=== PATIENT | male | born 1980 | race Caucasian/White ===

== ENCOUNTER 2020-02-11 19:11 | Emergency (ER) | payer BC ==
--- NOTE | 2020-02-11 19:26 | EDM.PDOC ---
ED HPI GENERAL MEDICAL PROBLEM - General Chief Complaint: General Stated Complaint: POSSIBLE COVID EXPOSURE Time Seen by Provider: 02/11/20 19:47 - History of Present Illness INITIAL COMMENTS - FREE TEXT/NARRATIVE: The patient decided to leave without being seen prior to my evaluation. Past Medical History - Past Health History Medical/Surgical History: Denies Medical/Surgical History Social & Family History - Tobacco Use Smoking Status *Q: Never Smoker Second Hand Smoke Exposure: No - Recreational Drug Use Recreational Drug Use: No ED ROS GENERAL - Review of Systems Review Of Systems: Unable To Obtain Reason Not Obtained: refused to be seen. ED EXAM, GENERAL - Physical Exam Exam: Not Obtained Course - Vital Signs Last Recorded V/S: Last Vital Signs Temp 98.3 F 02/11/20 19:14 Pulse 72 02/11/20 19:14 Resp 18 02/11/20 19:14 BP 118/89 02/11/20 19:14 Pulse Ox 97 02/11/20 19:14 Departure - Departure Time of Disposition: 20:06 (left without being seen. ) [facility] Clinical Impression: Patient left without being seen - Discharge Information Forms: ED Department Discharge Sepsis Event Note (ED) - Evaluation Sepsis Screening Result: No Definite Risk - Focused Exam Vital Signs: Vital Signs Temp Pulse Resp BP Pulse Ox 02/11/20 19:14 98.3 F 72 18 118/89 97
== END 2020-02-11 20:00 | disposition left against medical advice (07) ==
LOC: DL.ED 19:11
DX: Z53.21 Procedure and treatment not carried out due to patient leaving prior to being seen by health care provider (principal)